=== PATIENT | female | born 1950 | race Two or more races ===

== ENCOUNTER 2024-01-13 08:28 | Emergency (ER) | payer MEDICARE, MEDICAID ==
[~2024-01-13] VITALS: Ht 167.6 cm; Wt 68.0 kg
[2024-01-13 10:31] VITALS: BP 122/74; TEMP 98.6; O2SAT 99
== END 2024-01-13 10:33 | disposition home or self-care (01) ==
LOC: ER 09:12
DX: I83.892 Varicose veins of left lower extremity with other complications (principal); E11.9 Type 2 diabetes mellitus without complications; I50.9 Heart failure, unspecified; J44.9 Chronic obstructive pulmonary disease, unspecified; Z88.0 Allergy status to penicillin